=== PATIENT | male | born 1970 | race Caucasian/White ===

== ENCOUNTER 2023-10-02 04:21 | Day surgery (SDC) | payer BC, OTHER ==
[2023-09-28 10:00] VITALS: BMI 28.8
[2023-10-02] MEDS ORDERED: MIDAZOLAM HCL 2 MG/2 ML SINGLE DOSE VIAL ONE ×2 (12:49→15:10)
[2023-10-02] MEDS ORDERED: FENTANYL CITRATE/PF 50 MCG/ML VIAL ONE ×5 (12:49→18:15)
[2023-10-02] MEDS ORDERED: ROCURONIUM BROMIDE 50 MG/5 ML SYRINGE ONE (12:49)
[2023-10-02] MEDS ORDERED: PROPOFOL 20 ML ONE (12:49)
[2023-10-02] MEDS ORDERED: ONDANSETRON 4 MG/2 ML VIAL ONE ×2 (12:52→15:27)
[2023-10-02] MEDS ORDERED: DEXAMETHASONE SOD PHOSPHATE 4 MG/1 ML VIAL ONE ×2 (12:52→15:27)
[2023-10-02] MEDS ORDERED: oxyCODONE HCL 5 MG TABLET PO PRN ×2 (12:58)
[2023-10-02] MEDS ORDERED: ONDANSETRON 4 MG/2 ML VIAL IVPUSH PRN (12:58)
[2023-10-02] MEDS ORDERED: LACTATED RINGERS SOLUTION 1,000 ML IV SCH (13:00)
[2023-10-02] MEDS ORDERED: HEPARIN NA (PORCINE) 5,000 UNITS/ML 1ML VIAL ONE (13:04)
[2023-10-02] MEDS ORDERED: BUPIVACAINE HCL/PF 0.25% (2.5MG/ML) 10 ML VIAL ONE (13:07)
[2023-10-02] MEDS ORDERED: LIDOCAINE HCL/PF 2% SDV 5ML VIAL ONE (15:10)
[2023-10-02] MEDS ORDERED: SUCCINYLCHOLINE CHLORIDE 200 MG/10 ML SYRINGE ONE (15:10)
[2023-10-02] MEDS ORDERED: KETOROLAC TROMETHAMINE 30 MG/1 ML VIAL ONE (15:27)
[2023-10-02] MEDS: ceFAZolin 2 GRAM PREMIX BAG IVPB ONE (15:30)
[2023-10-02] MEDS: BUPIVACAINE HCL/PF 0.25% (2.5MG/ML) 10 ML VIAL IJ ONE (15:47)
[2023-10-02] MEDS ORDERED: PROMETHAZINE HCL 25 MG/1 ML VIAL IVPB PRN (16:41)
[2023-10-02] MEDS ORDERED: NEOSTIGMINE METHYLSULFATE 0.5 MG/1 ML - 10 ML MDV ONE (17:10)
[2023-10-02] MEDS ORDERED: GLYCOPYRROLATE 0.2 MG/1 ML VIAL ONE (17:10)
[2023-10-02] MEDS ORDERED: ACETAMINOPHEN INJECTION 100 ML IVPB ONE (17:47)
[2023-10-02] MEDS: ACETAMINOPHEN 1000 MG/100 ML BAG IVPB ONE (17:55)
[2023-10-02 19:53] VITALS: BP 146/68; PULSE 64; RESP 16; TEMP 97.5
== END 2023-10-02 19:45 | disposition home or self-care (01) ==
LOC: JASU-SURG 04:21
PROVIDERS: ATTEND Surgery
PROC: 0WUF4JZ Supplement Abdominal Wall with Synthetic Substitute, Percutaneous Endoscopic Approach (ICD-10-PCS; principal; 2023-10-02 13:15)
DX: K42.0 Umbilical hernia with obstruction, without gangrene (principal)
CPT/HCPCS: 86850; 86900; 86901; 94760; C1781; J0131; J1644